=== PATIENT | male | born 1995 | race American Indian/Alaskan Native ===

== ENCOUNTER 2020-03-07 12:55 | Emergency (ER) | payer SELFPAY ==
[2020-03-07 13:27] VITALS: BP 90/56
--- NOTE | 2020-03-07 13:28 | Emergency Department Report ---
Chief Complaint: Urogenital-Male Stated Complaint: IRRITATION IN PELVIC AREA Time Seen by Provider: 03/07/20 13:26 - HPI History of Present Illness: Patient is a 24-year-old male who presents emergency room with complaints of irritation to the penis that began a week ago. He states that he had sexual intercourse and noticed a few lesions. He states that he then used Dsouza in the area. He states it has been improving and that is just irritated. He denies any dysuria, penile discharge, pain or swelling in the testicles, abdominal pain, fever, nausea, vomiting, diarrhea, hematuria, urinary retention. No past medical history. No allergies to medications. 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 there is an abrasion to the ventral surface of the penis, there are also a few small healing shallow ulcerations, normal testicular lie, normal cremasteric r eflex, no scrotal edema, no tenderness palpation of the testicles bilaterally, no epididymal edema or tenderness palpation bilaterally Examination appears consistent with abrasion, there are also a few small healing shallow ulcerations which could be a possibility of genital HSV Patient will be referred to a clinic and the health department in order to have a full STD panel Discussed strict return precautions with patient advised pt Please use triple antibiotic or Neosporin ointment. Please do not use Dsouza. Please follow-up with the clinic or the health department to have a full STD panel. You need to be tested for the herpes virus. Do not engage in sexual intercourse. This is very contagious. These have any partner tested and treated as well. Return to emergency room for any worsening symptoms. Medical screening examination performed and there is no threat to life or limb at this time Patient given the appropriate resources - Exam Vital Signs: Vital Signs 03/07/20 03/07/20 13:21 13:26 Temperature 98.2 F Pulse Rate 85 Respiratory 16 Rate Blood Pressure 90/56 [Right] O2 Sat by Pulse 100 Oximetry MSE screening note: Focused history and physical exam performed. ED Disposition for MSE Clinical Impression: Penile lesion Penile abrasion Qualifiers: Encounter type: initial encounter Qualified Code(s): S30.812A - Abrasion of penis, initial encounter Disposition: MED SCREENING EXAM-LEFT Is pt being admited?: No Does the pt Need Aspirin: No Condition: Stable Additional Instructions: Please use triple antibiotic or Neosporin ointment. Please do not use Dsouza. Please follow-up with the clinic or the health department to have a full STD panel. You need to be tested for the herpes virus. Do not engage in sexual intercourse. This is very contagious. These have any partner tested and treated as well. Return to emergency room for any worsening symptoms. [employer] Address: [address] [place] [id number] Referrals: [facility] [Outside] - 2-3 Days Time of Disposition: 13:27 Print Language: UKRAINIAN
== END 2020-03-07 14:00 | disposition left against medical advice (07) ==
LOC: ED 12:55
DX: R10.2 Pelvic and perineal pain (principal); Z53.21 Procedure and treatment not carried out due to patient leaving prior to being seen by health care provider